=== PATIENT | female | born 1985 | race Hispanic/Latino ===

== ENCOUNTER 2017-06-13 21:32 | Emergency (ER) | payer MEDICAID ==
[2017-06-13] MEDS ORDERED: KETOROLAC TROMETHAMINE 60 MG/2 ML VIAL ONE (22:51)
[2017-06-13] MEDS ORDERED: LIDOCAINE HCL 1% 20 ML VIAL ONE (22:51)
== END 2017-06-14 00:07 | disposition home or self-care (01) ==
LOC: EDH 21:32
DX: S61.211A Laceration without foreign body of left index finger without damage to nail, initial encounter (principal); S61.213A Laceration without foreign body of left middle finger without damage to nail, initial encounter; I10 Essential (primary) hypertension; Z72.0 Tobacco use; W26.0XXA Contact with knife, initial encounter; Y93.89 Activity, other specified; Y92.89 Other specified places as the place of occurrence of the external cause; Y99.8 Other external cause status
CPT/HCPCS: 12042; 96372; 99284; J1885; 12002